=== PATIENT | female | born 1950 | race Caucasian/White ===

== ENCOUNTER 2023-09-21 06:18 | Day surgery (SDC) | payer OTHER, SELFPAY ==
[2023-09-21] VITALS (11 sets, daily range): BP systolic 107–156; BP diastolic 59–83; BMI 35.5
[2023-09-21] MEDS: TYLENOL 1000 MG PO (13:28)
[2023-09-21] MEDS: NORMOSOL-R 1000 IV (13:29)
--- NOTE | 2023-09-21 15:48 | W.IMMPOSTOP ---
Surgical Immed Post Op Note
-
Primary Surgeon: Suni
Assisting: Jada CAMRAGO
Pre-op Diagnosis: Incarcerated umbilical hernia
Post-op Diagnosis: Incarcerated umbilical hernia (1cm x 1cm)
Procedure Performed: Robot assisted laparoscopic repair of incarcerated umbilical hernia (IPOM+)
Anesthesia Type: GETA + TAP block
Specimen / Cultures: None
Estimated Blood Loss: 3cc
Complications: None immediate
Findings: 1cm defect with incarcerated fat; 11cm round ventralight ST mesh
--- NOTE | 2023-09-21 15:49 | OR.RPT ---
Operative Report
Operative Report
Primary Surgeon: Suni
Assisting: Jada CAMARGO
Pre-op Diagnosis: Incarcerated umbilical hernia
Post-op Diagnosis: Incarcerated umbilical hernia (1cm x 1cm)
Procedure Performed: Robot assisted laparoscopic repair of incarcerated umbilical hernia (IPOM+)
Anesthesia Type: GETA + TAP block
Specimen / Cultures: None
Estimated Blood Loss: 3cc
Complications: None immediate
Operative Findings: 1cm defect with 11cm round ventralight ST mesh
Date of Surgery:� 09/21/23
Indications:� This 73F developed�a symptomatic umbilical hernia. Repair was thus indicated and laparoscopic approach was elected.
Description of procedure:� The patient was taken to the operating room and the correct site of surgery was verified. General anesthesia was induced and the patient was placed supine on the operating table with arms tucked.� The patient�s abdomen was
prepped and draped in standard sterile fashion. A time-out was completed verifying correct patient, procedure, site, positioning, and implants and special equipment prior to beginning this procedure. A stab incision was made in the left upper
quadrant, a Veress needle was inserted and proper position was confirmed by aspiration and saline drop test. Following this, pneumoperitoneum was created with insufflation of carbon dioxide to 12 mmHg. Then a 8mm robotic trocar was inserted at the
left anterior axillary line at the level of the umbilicus. A laparoscope was inserted and the area of initial trocar entry and Veress needle placement were both inspected and free of trauma. Two 8mm trocars were then placed a hand's breadth above
and below the initial trocar under direct visualization. The peritoneum was incised at the falciform ligament and a flap was developed in transverse and caudad directions using blunt and sharp dissection. The flap was extremely thin and friable and
ultimately did not hold up well enough to be used as an adequate barrier for the mesh. The upper port was upsized to 12mm. The umbilical defect measured as above. Incarcerated fat was reduced from the defect. The defect was closed with 0 PDS
stratafix suture.�All peritoneum and preperitoneal fat was stripped from the abdominal wall around the defect extending out for several cm circumferentially. An 11cm round ventralight ST mesh was passed into the abdomen. A melody was made in the skin
at the umbilicus and a suture passer was passed through the melody into the abdomen and was used to grasp the Echo stay suture. The mesh was then elevated to be flush with the abdominal wall and was secured to the abdominal wall circumferentially with
2-0 PDS suture. A transversus abdominis plane block was performed under laparoscopic vision using decadron/marcaine. The 12mm port was closed laparoscopically with 0 vicryl under direct vision. After ensuring adequate hemostasis, the trocars were
removed and the pneumoperitoneum allowed to escape. The trocar incisions were closed at the skin level using 4-0 monocryl and topical skin adhesive. The patient tolerated the procedure well and was taken to the postanesthesia care unit in stable
condition.
The assistance of Jada CAMARGO was required due to the complexity of the procedure. During the procedure she assisted with retraction, resection, and closure of the wound.
== END 2023-09-21 18:08 | disposition home or self-care (01) ==
LOC: SDS 06:18
PROVIDERS: ATTENDING PHYSICIAN Surgery
DX: K42.0 Umbilical hernia with obstruction, without gangrene (principal)
CPT/HCPCS: 49592; C1781

== ENCOUNTER → 2024-06-01 14:43 | Outpatient (REF) | payer OTHER, SELFPAY | LOC: WDC 14:43 | PROVIDERS: ATTENDING PHYSICIAN Family Medicine | DX: Z12.31 Encounter for screening mammogram for malignant neoplasm of breast (principal) | CPT/HCPCS: 77063; 77067 ==

== ENCOUNTER 2024-06-22 06:27 | Day surgery (SDC) | payer OTHER, SELFPAY | END 2024-06-22 11:55 | disposition home or self-care (01) | LOC: GI 06:27 | PROVIDERS: ATTENDING PHYSICIAN Internal Medicine Gastroenterology | DX: R12 Heartburn (principal); K31.7 Polyp of stomach and duodenum; K31.A0 Gastric intestinal metaplasia, unspecified | CPT/HCPCS: 43239; 88305 ==

== ENCOUNTER → 2024-09-07 07:38 | Outpatient (REF) | payer OTHER, SELFPAY | LOC: HWRAD 07:38 | PROVIDERS: ATTENDING PHYSICIAN Internal Medicine Gastroenterology; FAMILY PHYSICIAN Family Medicine | DX: K82.4 Cholesterolosis of gallbladder (principal) | CPT/HCPCS: 76700 ==

== ENCOUNTER → 2024-10-29 10:28 | Outpatient (REF) | payer OTHER, SELFPAY | LOC: RAD 10:28 | PROVIDERS: ATTENDING PHYSICIAN Family Medicine | DX: R05.1 Acute cough (principal) | CPT/HCPCS: 71046 ==

== ENCOUNTER → 2025-05-09 13:45 | Outpatient (REF) | payer OTHER, SELFPAY | LOC: RCS 13:45 | PROVIDERS: ATTENDING PHYSICIAN Internal Medicine Cardiovascular Disease; FAMILY PHYSICIAN Family Medicine | DX: R06.09 Other forms of dyspnea (principal); M72.2 Plantar fascial fibromatosis | CPT/HCPCS: 93306 ==